=== PATIENT | female | born 1980 | race Caucasian/White ===

== ENCOUNTER 2023-05-15 01:17 | Emergency (ER) | payer OTHER ==
[2023-05-15 01:53] LABS: BASOPHILS ABSOLUTE AUTO 0.03 K/mm3 (0.01-0.08); BASOPHILS PERCENT AUTO 0.3 % (0.1-1.2); EOSINOPHILS ABSOLUTE AUTO 0.11 K/mm3 (0.04-0.36); EOSINOPHILS PERCENT AUTO 1.3 (0.7-5.8); HEMATOCRIT 29.9 % (34.1-44.9); HEMOGLOBIN 8.9 gm/dl (11.2-15.7); IMMATURE GRAN ABSOLUTE AUTO 0.01 K/mm3 (0.00-0.10); IMMATURE GRAN PERCENT AUTO 0.1 % (<=1.0); LYMPHOCYTES ABSOLUTE AUTO 2.26 K/mm3 (1.18-3.74); LYMPHOCYTES PERCENT AUTO 26.3 % (19.3-51.7); MEAN CORPUSCULAR HEMOGLOBIN 20.3 pg (25.6-32.2); MEAN CORPUSCULAR HGB CONC 29.8 g/dl (32.2-35.5); MEAN CORPUSCULAR VOLUME 68.1 fl (79.4-94.8); NEUTROPHILS ABSOLUTE AUTO 5.57 K/mm3 (1.56-6.13); PLATELET COUNT,PLT 454 K/mm3 (182-369); RED BLOOD CELL COUNT 4.39 M/mm3 (3.98-5.22); WHITE BLOOD CELL COUNT,WBC 8.58 K/mm3 (3.98-10.04)
[2023-05-15 02:14] LABS: SLIDE REVIEW ABNORMAL SMEAR
== END 2023-05-15 03:30 | disposition home or self-care (01) ==
LOC: JD.ED 01:17
DX: O20.9 Hemorrhage in early pregnancy, unspecified (principal); Z3A.10 10 weeks gestation of pregnancy
CPT/HCPCS: 36415; 76817; 76817-26; 84702; 85025; 86900; 86901; 99284